=== PATIENT | male | born 1945 | race Caucasian/White ===

== ENCOUNTER 2016-11-08 18:38 | Emergency (ER) | payer MEDICARE, OTHER ==
[2016-11-08] MEDS ORDERED: LORAZEPAM 2 MG/ML SOL ONE (18:59)
[2016-11-08] MEDS ORDERED: SOLUMEDROL 125 MG/2 ML 125 MG/2 ML PDS ONE (18:59)
[2016-11-08] MEDS: SODIUM CHLORIDE 0.9% FLUSH 10 ML SOL IV PRN (19:08)
[2016-11-08] MEDS: SOLUMEDROL 125 MG/2 ML 125 MG/2 ML PDS IV ONE (19:10)
[2016-11-08] MEDS: LORAZEPAM 2 MG/ML SOL IV ONE (19:11)
[2016-11-08 19:20] LABS: BASOPHILS % (AUTO) 1 % (0-3); EOSINOPHILS % (AUTO) 2 % (0-9); HEMATOCRIT 38 % (39-53); MEAN CORPUSCULAR HGB CONC 34.5 gm/dl (32.0-36.0); MONOCYTES % (AUTO) 8.5 % (0-12); NEUTROPHILS % (AUTO) 75.7 % (37-80)
[2016-11-08 19:26] LABS: CALCIUM 8.4 mg/dl (8.5-10.1); POTASSIUM 4.3 mMol/L (3.5-5.1)
[2016-11-08 19:53] VITALS: TEMP 99
[2016-11-08 20:14] VITALS: BP 162/88; PULSE 106; RESP 17; O2SAT 92
== END 2016-11-08 21:30 | disposition home or self-care (01) | DRG 192 ==
LOC: ED 18:38
DX: J44.1 Chronic obstructive pulmonary disease with (acute) exacerbation (principal)
CPT/HCPCS: 71020; 71275; 80048; 85025; 85378; 87804; 99285; J2060; J2930; Q9967

== ENCOUNTER 2017-01-31 08:18 | Emergency (ER) | payer MEDICARE, OTHER ==
[2017-01-31] MEDS ORDERED: DIAZEPAM 5MG/ML SOL IV ONE ×3 (09:47→17:07)
[2017-01-31] MEDS ORDERED: DIAZEPAM 5 MG TAB PO ONE (09:47)
[2017-01-31] MEDS ORDERED: DIAZEPAM 5MG/ML SOL ONE ×2 (09:50→17:10)
[2017-01-31] MEDS: SODIUM CHLORIDE 0.9% FLUSH 10 ML SOL IV PRN ×5 (09:57→17:12)
[2017-01-31] MEDS ORDERED: KETOROLAC TROMETHAMINE 30 MG/ML SOL IV ONE (10:20)
[2017-01-31] MEDS ORDERED: KETOROLAC TROMETHAMINE 30 MG/ML SOL ONE (10:22)
[2017-01-31] MEDS ORDERED: HYDROMORPHONE HCL 2 MG/ML 1 ML SOL IV ONE ×3 (10:54→13:22)
[2017-01-31] MEDS ORDERED: HYDROMORPHONE HCL 2 MG/ML 1 ML SOL ONE ×3 (11:47→13:24)
[2017-01-31] MEDS ORDERED: NALOXONE HYDROCHLORIDE 0.4 MG/ML SOL ONE (14:42)
[2017-01-31] MEDS ORDERED: ADENOSINE 3 MG/ML SOL IV PRN (14:43)
[2017-01-31] MEDS ORDERED: NALOXONE HYDROCHLORIDE 0.4 MG/ML SOL IV ONE (14:43)
[2017-01-31] MEDS ORDERED: ADENOSINE 3 MG/ML SOL IV ONE (14:44)
[2017-01-31] MEDS ORDERED: METOPROLOL TARTRATE 5 MG/5 ML SOL IV ONE ×4 (14:52→15:06)
[2017-01-31 14:59] LABS: BASOPHILS % (AUTO) 0 % (0-3); EOSINOPHILS % (AUTO) 0 % (0-9); HEMATOCRIT 43 % (39-53); MEAN CORPUSCULAR HGB CONC 34.3 gm/dl (32.0-36.0); MONOCYTES % (AUTO) 1.5 % (0-12); NEUTROPHILS % (AUTO) 94.2 % (37-80)
[2017-01-31] MEDS ORDERED: CEFTRIAXONE 1 GM PDS 1 GM in SODIUM CHLORIDE 0.9% 100 ML 100 ML IV ONE (15:02)
[2017-01-31] MEDS ORDERED: CEFTRIAXONE 1 GM PDS ONE (15:03)
[2017-01-31 15:12] LABS: ABG PH 7.35 (7.35-7.45)
[2017-01-31 15:13] LABS: ALBUMIN 4.1 gm/dl (3.4-5.0); CALCIUM 9.1 mg/dl (8.5-10.1); MEAN CORPUSCULAR VOLUME 99 fL (80-100); POTASSIUM 4.6 mMol/L (3.5-5.1)
[2017-01-31 15:24] LABS: APPEARANCE,URINE Slightly Cloudy; BILIRUBIN,URINE NEGATIVE (NEGATIVE); COLOR,URINE Yellow; GLUCOSE, URINE (UA) NEGATIVE (NEGATIVE); KETONES,URINE NEGATIVE (NEGATIVE); LEUKOCYTE ESTERASE ,URINE 1+ (NEGATIVE); NITRATE,URINE NEGATIVE (NEGATIVE); OCCULT BLOOD,URINE NEGATIVE (NEG-TRACE); PH,URINE 7.5
[2017-01-31 15:31] LABS: RBC,URINE 0-1 (0-3AV/HPF)
[2017-01-31 16:59] VITALS: TEMP 97.3
[2017-01-31] MEDS ORDERED: ALBUTEROL/IPRATROPIUM 1 VIAL SOL INH ONE (17:21)
[2017-01-31] MEDS ORDERED: ALBUTEROL/IPRATROPIUM 1 VIAL SOL ONE (17:21)
[2017-01-31 18:13] VITALS: BP 149/112; PULSE 109; RESP 14; O2SAT 98
== END 2017-01-31 17:55 | disposition short-term general hospital (02) | DRG 948 ==
LOC: ED 08:18
DX: R41.82 Altered mental status, unspecified (principal); N30.00 Acute cystitis without hematuria; M62.830 Muscle spasm of back; R23.1 Pallor
CPT/HCPCS: 36415; 36600; 70450; 71010; 72148; 72158; 74176; 80053; 81001; 82803; 84484; 85025; 87040; 87077; 87088; 87186; 93005; 99291; J0153; J0696; J1170; J1885; J2310; J3360; J7620; A9575

== ENCOUNTER 2017-02-27 07:21 | Emergency (ER) | payer MEDICARE, OTHER ==
[2017-02-27] MEDS ORDERED: IBUPROFEN 600 MG TAB PO ONE (07:58)
[2017-02-27] MEDS ORDERED: IBUPROFEN 600 MG TAB ONE (07:59)
[2017-02-27] MEDS ORDERED: CYCLOBENZAPRINE 10 MG TAB PO ONE (08:00)
[2017-02-27] MEDS ORDERED: CYCLOBENZAPRINE 10 MG TAB ONE (08:01)
[2017-02-27 08:34] VITALS: TEMP 97.1
[2017-02-27 08:50] VITALS: RESP 16
[2017-02-27 08:51] VITALS: BP 157/76; PULSE 67; O2SAT 98
== END 2017-02-27 08:54 | disposition home or self-care (01) | DRG 552 ==
LOC: ED 07:21
DX: M54.9 Dorsalgia, unspecified (principal); M62.830 Muscle spasm of back; Z98.1 Arthrodesis status
CPT/HCPCS: 99283

== ENCOUNTER 2017-03-14 12:25 | Inpatient (IN) | payer MEDICARE, OTHER ==
[2017-03-14] MEDS ORDERED: ALBUTEROL/IPRATROPIUM 1 VIAL SOL INH ONE (12:47)
[2017-03-14 13:01] LABS: BASOPHILS % (AUTO) 1 % (0-3); EOSINOPHILS % (AUTO) 4 % (0-9); HEMATOCRIT 31 % (39-53); MEAN CORPUSCULAR HGB CONC 35.4 gm/dl (32.0-36.0); MEAN CORPUSCULAR VOLUME 90 fL (80-100); MONOCYTES % (AUTO) 6.9 % (0-12); NEUTROPHILS % (AUTO) 77.5 % (37-80)
[2017-03-14 13:16] LABS: APPEARANCE,URINE Clear; BILIRUBIN,URINE NEGATIVE (NEGATIVE); COLOR,URINE Yellow; GLUCOSE, URINE (UA) NEGATIVE (NEGATIVE); KETONES,URINE NEGATIVE (NEGATIVE); LEUKOCYTE ESTERASE ,URINE NEGATIVE (NEGATIVE); NITRATE,URINE NEGATIVE (NEGATIVE); OCCULT BLOOD,URINE NEGATIVE (NEG-TRACE); UROBILINOGEN,URINE 0.2 (0.2-1.0 EU)
[2017-03-14 13:16] LABS: ALBUMIN 2.7 gm/dl (3.4-5.0); ALT 20 IU/L (14-63); CALCIUM 8.8 mg/dl (8.5-10.1); GLOM FILT RATE 55 mL/min (>60); POTASSIUM 3.7 mMol/L (3.5-5.1); SODIUM 135 mMol/L (136-145)
[2017-03-14 13:34] LABS: ABG PH 7.39 (7.35-7.45)
[2017-03-14 13:47] LABS: RBC,URINE NEGATIVE (0-3AV/HPF); WBC,URINE 0-1 (0-5AV/HPF)
[2017-03-14] MEDS ORDERED: ALBUTEROL/IPRATROPIUM 1 VIAL SOL ONE (14:00)
[2017-03-14] MEDS ORDERED: SOLUMEDROL 125 MG/2 ML 125 MG/2 ML PDS IV ONE (15:21)
[2017-03-14] MEDS ORDERED: SOLUMEDROL 125 MG/2 ML 125 MG/2 ML PDS ONE (15:46)
[2017-03-14] MEDS ORDERED: ALBUTEROL NEB SOL 2.5MG/3ML 1 VIAL SOL NEB PRN (15:50)
[2017-03-14] MEDS ORDERED: ALPRAZOLAM 0.25 MG TAB PO PRN (15:51)
[2017-03-14] MEDS ORDERED: QUETIAPINE FUMARATE 25 MG TAB PO PRN (15:51)
[2017-03-14] MEDS ORDERED: CYCLOBENZAPRINE 10 MG TAB PO PRN (15:51)
[2017-03-14] MEDS ORDERED: PATIENT EDUCATION 1 MISC PRN (16:31)
[2017-03-14] MEDS: SOLUMEDROL 125 MG/2 ML 125 MG/2 ML PDS IV SCH ×2 (16:55→21:41)
[2017-03-14] MEDS: ALBUTEROL/IPRATROPIUM 1 VIAL SOL INH SCH ×2 (17:02→21:42)
[2017-03-14] MEDS: CLONIDINE 0.1 MG TAB PO SCH (19:07)
[2017-03-14] MEDS: TAMSULOSIN HYDROCHLORIDE 0.4 MG CAP PO SCH (19:07)
[2017-03-14] MEDS: GABAPENTIN 300 MG CAP PO SCH (19:08)
[2017-03-14] MEDS: ENOXAPARIN 40 MG SOL SC SCH (19:08)
[2017-03-14] MEDS: METOPROLOL TARTRATE 50 MG TAB PO SCH (19:08)
[2017-03-14] MEDS: PANTOPRAZOLE SODIUM 40 MG ECT PO SCH (19:09)
[2017-03-14] MEDS: AZITHROMYCIN 250 MG TAB PO SCH (19:48)
[2017-03-14] MEDS ORDERED: FLUOXETINE HYDROCHLORIDE 10 MG CAP PO SCH (21:00)
[2017-03-14] MEDS ORDERED: AMLODIPINE 5 MG TAB PO SCH (21:00)
[2017-03-14] MEDS ORDERED: LISINOPRIL 20 MG TAB PO SCH (21:00)
[2017-03-14] MEDS: LAMOTRIGINE 100 MG TAB PO SCH (21:32)
[2017-03-14] MEDS: SODIUM CHLORIDE 0.9% FLUSH 10 ML SOL IV SCH (21:41)
[2017-03-14] MEDS ORDERED: IBUPROFEN 600 MG TAB PO PRN (22:07)
[2017-03-15 03:46] VITALS: TEMP 97
[2017-03-15] MEDS: SODIUM CHLORIDE 0.9% FLUSH 10 ML SOL IV SCH ×3 (03:47→10:20)
[2017-03-15] MEDS: ALBUTEROL/IPRATROPIUM 1 VIAL SOL INH SCH ×2 (03:47→10:18)
[2017-03-15] MEDS: SOLUMEDROL 125 MG/2 ML 125 MG/2 ML PDS IV SCH ×2 (03:47→10:18)
[2017-03-15] MEDS: PANTOPRAZOLE SODIUM 40 MG ECT PO SCH (06:30)
[2017-03-15 08:42] VITALS: BP 156/84; RESP 20
[2017-03-15] MEDS: CLONIDINE 0.1 MG TAB PO SCH (08:49)
[2017-03-15] MEDS: METOPROLOL TARTRATE 50 MG TAB PO SCH (08:50)
[2017-03-15] MEDS: TAMSULOSIN HYDROCHLORIDE 0.4 MG CAP PO SCH (08:50)
[2017-03-15] MEDS: LAMOTRIGINE 100 MG TAB PO SCH (08:50)
[2017-03-15] MEDS: ENOXAPARIN 40 MG SOL SC SCH (08:51)
[2017-03-15] MEDS: GABAPENTIN 300 MG CAP PO SCH (08:51)
[2017-03-15] MEDS: AZITHROMYCIN 250 MG TAB PO SCH (08:55)
[2017-03-15] MEDS ORDERED: AMLODIPINE 5 MG TAB PO SCH (09:00)
[2017-03-15] MEDS ORDERED: FLUOXETINE HYDROCHLORIDE 10 MG CAP PO SCH (09:00)
[2017-03-15] MEDS ORDERED: BUPROPION XL 150 MG T24 PO SCH (09:00)
[2017-03-15] MEDS ORDERED: LISINOPRIL 20 MG TAB PO SCH (09:00)
[2017-03-15 10:21] VITALS: PULSE 81
[2017-03-15 11:23] VITALS: O2SAT 92
== END 2017-03-15 11:40 | disposition short-term general hospital (02) | DRG 192 ==
LOC: ED 12:25 → ACUTE CARE 15:36 → UNDOADMIN 15:36 → ACUTE CARE 15:50
PROVIDERS: ADMIT Family Medicine; ATTEND Family Medicine
DX: J44.1 Chronic obstructive pulmonary disease with (acute) exacerbation (principal); C61 Malignant neoplasm of prostate; I10 Essential (primary) hypertension; R25.2 Cramp and spasm; F41.9 Anxiety disorder, unspecified; R06.02 Shortness of breath
CPT/HCPCS: 36415; 71275; 80053; 81001; 82803; 83880; 84484; 85025; 85378; 85610; 93005; 94150; 94640; 94762; 99284; J1650; J2930; J7603; J7620; Q9967